=== PATIENT | male | born 1955 | race Caucasian/White ===

== ENCOUNTER 2021-12-24 20:31 | Emergency (ER) | payer MEDICARE, OTHER ==
--- NOTE | 2021-12-24 20:53 | ED Physician Documentation ---
History of Present Illness - Stated complaint Stated Complaint: UNABLE TO URINATE,ABD/BACK PX - Chief complaint Chief Complaint: Abd Pain - Additonal information Additional information: 66-year-old male presents emergency department for evaluation of acute urinary retention. 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 He is followed by Dr. Sosa urologist at [facility]. He is scheduled to have a biopsy in about 3 weeks duration. This morning he began unable to urinate. Over the course of the day he has had an increasingly distended bladder with discomfort. No fevers nausea or vomiting . He has no previous history of urinary retention or obstruction. Review of Systems Constitutional: denies: Fever, Chills Nose: reports: Reviewed and negative Throat: reports: Reviewed and negative Cardiac: reports: Reviewed and negative Respiratory: reports: Reviewed and negative : reports: Unable to Void. denies: Dysuria, Frequency, Incontinent, Hematuria Skin: reports: Reviewed and negative Musculoskeletal: reports: Reviewed and negative Neurologic: reports: Reviewed and negative Psychiatric: reports: Reviewed and negative PD PAST MEDICAL HISTORY - Present Medications Home Medications: Ambulatory Orders Medication Instructions Recorded Confirmed No Known Home Medications 12/24/21 12/24/21 - Allergies Allergies/Adverse Reactions: Allergies Allergy/AdvReac Type Severity Reaction Status Date / Time No Known Drug Allergies Allergy Verified 12/24/21 20:43 PD ED PE EXPANDED - General General: Alert, No acute distress, Well developed/nourished - Cardiac Cardiac: Regular Rate, Radial strong equal, Pedal strong equal, Cap refill < 2 sec - Respiratory Respiratory: Clear to ausultation martha. No: Distress, Labored - Abdomen Abdomen: Normal Bowel sounds, Tender to palpation (Visibly distended bladder mild tenderness to palpation. Bladder scan reveals more than 1000 mL of urine.) - Derm Derm: Normal color, Warm and dry. No: Rash - Extremities Extremities: Normal. No: Deformity, Tenderness - Neuro Neuro: Alert and Oriented X 3, CNII-XII intact - GCS Eye Opening: Spontaneous Motor: Obeys Commands Verbal: Oriented Total: 15 Results - Vitals Vitals: Vital Signs - 24 hr 12/24/21 20:40 Temperature 36.8 C Heart Rate 69 Respiratory 16 Rate Blood Pressure 130/67 O2 Saturation 98 Oxygen O2 Source Room air - Labs Labs: Laboratory Tests 12/24/21 12/24/21 20:52 20:52 WBC 8.9 RBC 4.39 L Hgb 13.9 L Hct 41.1 L MCV 93.6 MCH 31.7 H MCHC 33.8 RDW 12.0 Plt Count 211 MPV 10.3 Neut # (Auto) 7.5 H Lymph # (Auto) 0.8 L [place] # (Auto) 0.6 Eos # (Auto) 0.0 Baso # (Auto) 0.0 Absolute Nucleated RBC 0.00 Nucleated RBC % 0.0 Sodium 140 Potassium 4.2 Chloride 103 Carbon Dioxide 27 Anion Gap 10.0 BUN 31 H Creatinine 1.3 H Estimated GFR (MDRD) 55 L Glucose 134 H Calcium 9.4 Total Bilirubin 1.1 H AST 22 ALT 22 Alkaline Phosphatase 41 L Total Protein 7.2 Albumin 4.6 Globulin 2.6 Albumin/Globulin Ratio 1.8 Lipase 28 PD MEDICAL DECISION MAKING - ED course Complexity details: reviewed results, re-evaluated patient, considered differential, d/w patient ED course: 66-year-old male who presents emergency department for evaluation of acute urinary retention. He states that he has a history of prostate issues and is followed by urology at [facility]. He is scheduled to have a biopsy completed in a few weeks. This morning he began to be unable to fully evacuate his bladder and was just dribbling very small amounts of urine. On presentation he had a visibly distended bladder and the bladder scan revealed more than 1000 mils of urine. We did have to place a coud catheter at the bedside where 1000 mils of generally clear yellow urine was drained. Screening labs show mild BUN and creatinine rise of 31 and 1.3 respectively. I suspect that this is likely secondary to the retention and now that the Morris is placed should resolve. I discussed with the patient the need for the coud catheter. He will call his urologist on Monday and arrange sooner follow-up. Emergent return precautions were discussed for failure of the Morris to drain, fevers or any concerns of infection. Departure - Departure Disposition: Home, Self Care Clinical Impression: Acute urinary retention Condition: Stable Record reviewed to determine appropriate education?: Yes Instructions: ED Catheter Care Morris, Leg Bag Care Dc Follow-Up: Tyler Candelario MD [Physician No Access] - Comments: Sam you came to the emergency department today because you are unable to void on your own. This is likely because your prostate has gotten large enough that it is now obstructing the flow of urine from your bladder. We did place a special type of catheter called a coud catheter. Please discuss this ED visit with Dr. Candelario. He may want to see you sooner than already arranged for follow-up. Because of the type of catheter placed I do not recommend that it be removed unless under the direction of your urologist. Today your labs showed a very mild increase in your creatinine and this can be a sign that the obstruction was traveling to your kidneys. However once the urine begins to drain typically this resolves. In general you can shower normally with a Morris catheter. I do recommend that you place a thin layer of antibiotic ointment around the tip of your penis and the tube to help prevent any irritation. If you develop fevers, have suddenly severe abdominal pain or uncontrolled vomiting return to the ER. Occasionally when the catheter is in place she can have slightly bloody urine, however if you have frankly bloody urine or passing a lot of blood clots or the catheter fails to drain you must return to the ER for repeat evaluation.
[2021-12-24 20:59] LABS: BASOPHILS % (AUTO) 0.2 %; EOSINOPHILS % (AUTO) 0.1 %; HCT - HEMATOCRIT 41.1 % (42.0-52.0); HGB - HEMOGLOBIN 13.9 g/dL (14.0-18.0); LYMPHOCYTES # (AUTO) 0.8 10^3/uL (1.5-3.5); LYMPHOCYTES % (AUTO) 9.1 %; MEAN CORPUSCULAR HEMOGLOBIN 31.7 pg (27.0-31.0); MEAN CORPUSCULAR HGB CONC 33.8 g/dL (32.0-36.0); MEAN CORPUSCULAR VOLUME 93.6 fL (80.0-94.0); MEAN PLATELET VOLUME 10.3 fL (7.4-11.4); MONOCYTES # (AUTO) 0.6 10^3/uL (0.0-1.0); MONOCYTES % (AUTO) 6.2 %; NEUTROPHILS # (AUTO) 7.5 10^3/uL (1.5-6.6); NEUTROPHILS % (AUTO) 84.2 %; PLT - PLATELET COUNT 211 10^3/uL (130-450); RED BLOOD COUNT 4.39 10^6/uL (4.70-6.10); WHITE BLOOD COUNT 8.9 x10^3/uL (4.8-10.8)
[2021-12-24 21:13] LABS: ALBUMIN 4.6 g/dL (3.2-5.5); ALBUMIN/GLOBULIN RATIO 1.8 (1.0-2.2); BILIRUBIN,TOTAL 1.1 mg/dL (0.2-1.0); CALCIUM 9.4 mg/dL (8.5-10.3); CREATININE 1.3 mg/dL (0.6-1.2); POTASSIUM 4.2 mmol/L (3.5-5.0); TOTAL PROTEIN 7.2 g/dL (6.7-8.2)
[2021-12-24 21:31] LABS: BILIRUBIN,URINE NEGATIVE (NEGATIVE); GLUCOSE, URINE (UA) NEGATIVE (NEGATIVE); KETONES,URINE (UA) NEGATIVE (NEGATIVE); LEUKOCYTE ESTERASE, URINE NEGATIVE (NEGATIVE); NITRITE,URINE NEGATIVE (NEGATIVE); OCCULT BLOOD,URINE LARGE (NEGATIVE); PROTEIN,URINE NEGATIVE (NEGATIVE); UROBILINOGEN,URINE 0.2 (NORMAL) E.U./dL (NORMAL)
[2021-12-24 21:42] LABS: CLARITY,URINE HAZY (CLEAR)
[2021-12-24 21:45] LABS: BACTERIA,URINE None Seen /HPF (None Seen); RBC,URINE TNTC /HPF (0-5); SQUAMOUS EPITHELIAL CELL,UR NONE SEEN (<= Few); WBC,URINE 0-3 /HPF (0-3)
[2021-12-24 21:59] VITALS: BP 114/69
== END 2021-12-24 22:15 | disposition home or self-care (01) ==
LOC: ED 20:31
DX: R33.9 Retention of urine, unspecified (principal)
CPT/HCPCS: 36415; 51702; 51798; 80053; 81001; 81003; 83690; 85025; 87086; 99283; 99284